=== PATIENT | female | born 1985 | race Caucasian/White ===

== ENCOUNTER 2017-02-13 07:03 | Emergency (ER) | payer MEDICAID ==
[~2017-02-13] VITALS: Ht 149.9 cm; Wt 58.1 kg
[2017-02-13 07:04] VITALS: BP 112/75
[2017-02-13] MEDS ORDERED: KETOROLAC 30 MG/1 ML IM ONE (07:30)
[2017-02-13] MEDS ORDERED: DIAZEPAM 5 MG TABLET PO ONE (07:30)
[2017-02-13] MEDS ORDERED: DIAZEPAM 5 MG TABLET ONE (07:38)
[2017-02-13] MEDS ORDERED: KETOROLAC 30 MG/1 ML ONE (07:39)
== END 2017-02-13 09:11 | disposition home or self-care (01) ==
LOC: ED 07:54
DX: M54.12 Radiculopathy, cervical region (principal)
CPT/HCPCS: 72050; 96372; 99284; J1885

== ENCOUNTER 2017-04-18 18:44 | Emergency (ER) | payer MEDICAID ==
[~2017-04-18] VITALS: Ht 154.9 cm; Wt 56.9 kg
[2017-04-18 18:45] VITALS: BP 117/74
[2017-04-18] MEDS ORDERED: KETOROLAC 30 MG/1 ML ONE (19:46)
[2017-04-18] MEDS ORDERED: KETOROLAC 30 MG/1 ML IM ONE (20:00)
== END 2017-04-18 20:03 | disposition home or self-care (01) ==
LOC: ED 19:14
DX: J02.8 Acute pharyngitis due to other specified organisms (principal); B34.9 Viral infection, unspecified; Z87.01 Personal history of pneumonia (recurrent)
CPT/HCPCS: 71020; 87081; 87880; 96372; 99285; J1885

== ENCOUNTER 2017-07-08 23:12 | Emergency (ER) | payer MEDICAID ==
[~2017-07-08] VITALS: Ht 154.9 cm; Wt 59.2 kg
[2017-07-08 23:14] VITALS: BP 100/64
[2017-07-08] MEDS ORDERED: DIPH,PERTUSS(ACELL),TET VAC/PF 0.5 ML IM-VACC ONE (23:38)
[2017-07-08] MEDS ORDERED: LIDOCAINE 1%, 20ML ONE (23:38)
[2017-07-09] MEDS ORDERED: DIPH,PERTUSS(ACELL),TET VAC/PF 0.5 ML IM-VACC ONE
[2017-07-09] MEDS ORDERED: LIDOCAINE 1%, 20ML SQ ONE
[2017-07-09] MEDS ORDERED: BACITRACIN ZINC OINT 500U/GM, 0.9 GM ONE (00:35)
== END 2017-07-09 00:43 | disposition home or self-care (01) ==
LOC: ED 23:59
DX: S01.81XA Laceration without foreign body of other part of head, initial encounter (principal); Z23 Encounter for immunization; X58.XXXA Exposure to other specified factors, initial encounter; Y93.89 Activity, other specified; Y99.8 Other external cause status; Y92.099 Unspecified place in other non-institutional residence as the place of occurrence of the external cause
CPT/HCPCS: 12011; 90471; 90715

== ENCOUNTER 2018-02-18 22:09 | Emergency (ER) | payer MEDICAID ==
[~2018-02-18] VITALS: Ht 154.9 cm; Wt 62.0 kg
[2018-02-18 22:10] VITALS: BP 108/73
[2018-02-18] MEDS ORDERED: ACETAMINOPHEN 500 MG TABLET ONE (22:49)
[2018-02-18] MEDS ORDERED: ACETAMINOPHEN 500 MG TABLET PO ONE (23:00)
== END 2018-02-18 23:20 | disposition home or self-care (01) ==
LOC: ED 23:00
DX: S39.012A Strain of muscle, fascia and tendon of lower back, initial encounter (principal); W19.XXXA Unspecified fall, initial encounter; Y93.66 Activity, soccer; Y92.89 Other specified places as the place of occurrence of the external cause; Y99.8 Other external cause status
CPT/HCPCS: 72110; 99284